=== PATIENT | male | born 1990 | race Caucasian/White ===

== ENCOUNTER 2018-01-12 14:59 | Emergency (ER) | payer OTHER ==
--- NOTE | 2018-01-12 15:14 | CPEKG ---
Heart Rate: 84 RR Interval: 714 P-R Interval: 164 QRSD Interval: 90 QT Interval: 356 QTC Interval: 421 P Aurora: 70 QRS Aurora: 78 T Wave Aurora: 13 EKG Severity - BORDERLINE ECG - EKG Impression: SINUS RHYTHM EKG Impression: PROBABLE LEFT ATRIAL ABNORMALITY Electronically Signed By: Helen Shaffer 12-Jan-2018 22:11:31
[2018-01-12] MEDS ORDERED: NS 500 ML IV ONE (15:15)
[2018-01-12 15:23] LABS: PLATELET COUNT 265 10^3/uL (150-400)
--- NOTE | 2018-01-12 15:51 | EDPHY ---
H & P Time Seen by Provider: 01/12/18 15:15 HPI/ROS: HPI Palpitations, chest tightness. 27-year-old male by private vehicle. This patient is from [place]. He arrived here 13 days ago. He reports that for the last 5 days he has had intermittent palpitations with a sensation of chest tightness. He describes these palpitations as skipping a beat. He reports that it seems to happen more at night. He denies chest pain but describes having a sensation of chest tightness. When the palpitations occur he also becomes more anxious and this seems to worsen his symptoms. He reports he has not been drinking caffeine over the last 5 days. Denies any energy beverages. Drinks alcohol occasionally. Denies any significant past medical history. ROS: Constitutional: No fever, no chills. No weakness. Eyes: No discharge. No changes in vision. ENT: No sore throat. No nasal congestion or rhinorrhea. Respiratory: No cough. No shortness of breath. Cardiac: As above. Gastrointestinal: No abdominal pain, no vomiting, no diarrhea. Genitourinary: No hematuria. No dysuria or increased frequency with urination. Musculoskeletal: No back pain. No neck pain. No myalgias or arthralgias. Skin: No rashes. Neurological: No headache. No focal weakness or altered sensation. Past medical history: Eye surgery. Otherwise denies any past medical history. Social history: Here by himself. Nonsmoker. Social alcohol. Very physically active. Visiting PhD student. He at [employer] [facility]. Physical Exam: General Appearance: Alert, no distress, mildly anxious. This patient is responding to questions appropriately and in full sentences. This patient appears well-hydrated and well-nourished. Eyes: Pupils equal and round no pallor or injection. No lid edema, erythema or injection. Respiratory: There are no retractions, lungs are clear to auscultation with good air movement bilaterally. Cardiovascular: Regular rate and rhythm. No murmur. Gastrointestinal: Abdomen is soft and nontender, no masses, bowel sounds normal. No focal tenderness at McBurney's point. No Martinez sign. Neurological: Motor sensory function is grossly intact. Cranial nerves are normal. Gait is normal. Skin: Warm and dry, no rashes. Musculoskeletal: Neck is supple and nontender. Extremities are symmetrical. All joints range without pain or impingement. Psychiatric: No agitation. No depression. Database: EKG: EKG time is 3:09 p.m.; EKG shows a narrow complex normal sinus rhythm with a ventricular rate of 84. The MI, QRS, QT intervals are within normal limits. There are no ST-T wave changes indicative of ischemic or injury pattern. No evidence of right heart strain. No evidence of WPW, Brugada syndrome, hypertrophic cardiomyopathy. Possible left atrial abnormality. Interpreted by me. Imaging: Chest x-ray PA and lateral; the cardiac mediastinal silhouette is unremarkable. No evidence of infiltrate or pneumothorax. Possible mild bronchitis. No other acute cardiopulmonary disease process noted. Interpreted by me. Procedures: Emergency department course: Vital signs reviewed. He is moderately hypertensive. Vital signs otherwise normal. IV was placed. Was started on IV normal saline with 500 cc to be given over the next hour. EKG obtained and reviewed by myself. 4:15 p.m., the patient was re-evaluated. Resting comfortably at this time. athletic monitor shows a narrow complex sinus rhythm with ventricular rate of 72. Blood pressure is normal. Pulse oximetry 97% on room air. He has been feeling comfortable. I discussed the results of his diagnostic workup in the emergency department. I feel he is safe for discharge at this time. He feels comfortable going home. I will provide him with a referral for primary care physician follow-up as needed. Return to emergency department precautions were thoroughly discussed with him. I suspect an anxiety component with his presentation. I have told him not to drink any caffeinated beverages or energy drinks while he is here. He is to keep well hydrated. All of his questions were answered. He was discharged in good condition. Differential Diagnosis: The differential diagnosis on this patient includes but is not limited to PVCs, PACs, anxiety reaction/stress reaction. SVT, AFib/a flutter, V-tach, acute coronary syndrome, pulmonary embolism unlikely. This represents a partial list of diagnoses considered. These considerations are based on history, physical exam, past history, reassessment and diagnostic testing. Smoking Status: Never smoked Constitutional: Initial Vital Signs Temperature (C) 36.4 C 01/12/18 15:01 Heart Rate 83 01/12/18 15:01 Respiratory Rate 18 01/12/18 15:01 Blood Pressure 146/89 H 01/12/18 15:01 O2 Sat (%) 94 01/12/18 15:01 O2 Delivery Mode Room Air Allergies/Adverse Reactions: No Known Allergies Allergy (Unverified 01/12/18 15:01) Home Medications: Medication Instructions Recorded NK [No Known Home Meds] 01/12/18 Medical Decision Making - Diagnostics Imaging Results: Imaging Impressions Chest X-Ray 01/12/18 15:16 Impression: Peribronchial thickening with hyperexpansion, suggesting bronchitis/ airways disease - Data Points Laboratory Results: Laboratory Results 01/12/18 15:14 01/12/18 15:14 01/12/18 01/12/18 01/12/18 15:14 15:14 15:14 WBC 5.56 10^3/uL 10^3/uL (3.80-9.50) RBC 6.07 10^6/uL 10^6/uL (4.40-6.38) Hgb 17.2 g/dL g/dL (13.7-17.5) Hct 48.8 % % (40.0-51.0) MCV 80.4 fL L fL (81.5-99.8) MCH 28.3 pg pg (27.9-34.1) MCHC 35.2 g/dL g/dL (32.4-36.7) RDW 12.9 % % (11.5-15.2) Plt Count 265 10^3/uL 10^3/uL (150-400) MPV 9.1 fL fL (8.7-11.7) Neut % (Auto) 67.1 % % (39.3-74.2) Lymph % (Auto) 23.9 % % (15.0-45.0) [place] % (Auto) 7.9 % % (4.5-13.0) Eos % (Auto) 0.0 % L % (0.6-7.6) Baso % (Auto) 0.9 % % (0.3-1.7) Nucleat RBC Rel Count 0.4 % H % (0.0-0.2) Absolute Neuts (auto) 3.73 10^3/uL 10^3/uL (1.70-6.50) Absolute Lymphs (auto) 1.33 10^3/uL 10^3/uL (1.00-3.00) Absolute Monos (auto) 0.44 10^3/uL 10^3/uL (0.30-0.80) Absolute Eos (auto) 0.00 10^3/uL L 10^3/uL (0.03-0.40) Absolute Basos (auto) 0.05 10^3/uL 10^3/uL (0.02-0.10) Absolute Nucleated RBC 0.02 10^3/uL H 10^3/uL (0-0.01) Immature Gran % 0.2 % % (0.0-1.1) Immature Gran # 0.01 10^3/uL 10^3/uL (0.00-0.10) Sodium 146 mEq/L H mEq/L (135-145) Potassium 3.7 mEq/L mEq/L (3.5-5.2) Chloride 102 mEq/L mEq/L (97-110) Carbon Dioxide 27 mEq/l mEq/l (22-31) Anion Gap 17 mEq/L H mEq/L (8-16) BUN 12 mg/dL mg/dL (7-23) Creatinine 0.8 mg/dL mg/dL (0.7-1.3) Estimated GFR > 60 Glucose 114 mg/dL H mg/dL (70-100) Calcium 9.9 mg/dL mg/dL (8.5-10.4) Troponin I < 0.012 ng/mL ng/mL (0.000-0.034) Medications Given: Discontinued Medications Sodium Chloride (Ns) 500 mls @ 1,000 mls/hr IV EDNOW ONE PRN Reason: Protocol Stop: 01/12/18 15:44 Last Admin: 01/12/18 15:34 Dose: 500 mls Departure - Departure Disposition: Home, Routine, Self-Care Clinical Impression: Palpitations, Anxiety Condition: Good Instructions: Heart Palpitations (ED) Additional Instructions: Read and follow provided instructions. Follow-up with primary care physician I have referred you to as needed in 3-4 days for re-evaluation. Avoid caffeinated beverages and energy drinks. Keep well hydrated. Drink lots of fluids. Return to the emergency department for worsening symptoms, worsening palpitations, weakness, lightheadedness, chest pain, shortness of breath or other serious concerns. Referrals: Patrica Hopkins MD [Medical Doctor] - As per Instructions
[2018-01-12 16:36] VITALS: BP 133/90
== END 2018-01-12 16:52 | disposition home or self-care (01) ==
DX: R00.2 Palpitations (principal); F41.9 Anxiety disorder, unspecified; E86.9 Volume depletion, unspecified